=== PATIENT | female | born 1975 | race Caucasian/White ===

== ENCOUNTER 2017-05-02 12:52 | Emergency (ER) | payer OTHER ==
[~2017-05-02] VITALS: Ht 149.9 cm; Wt 81.2 kg
[2017-05-02 13:14] VITALS: BP 126/85
[2017-05-02 15:04] LABS: NEGATIVE OBC STREP NEG; POSITIVE OBC STREP POS
[2017-05-02] MEDS ORDERED: NYST100054 PO (15:27)
[2017-05-02] MEDS ORDERED: TRIA15OI TP (15:27)
[2017-05-02] MEDS ORDERED: PRED50TA PO (15:27)
--- NOTE | 2017-05-02 15:27 | PHYS DOC ---
Past Medical History Past Medical History: COPD, Other Additional Past Medical Histor: Pedro Luis's, emphysema, degen. disc disease Past Surgical History: Cholecystectomy, Hysterectomy, Tonsillectomy, Tubal ligation, Other Additional Past Surgical Histo: lithotripsy Alcohol Use: None Drug Use: None Adult General Chief Complaint Chief Complaint: MULTIPLE COMPLAINTS [facility] HPI Patient is a 42 year old female who presents complaining of multiple issues. Patient states she was treated for poison jovani rash or week ago with a give maintain. She states she's had a sore throat and is concerned she could have yeast infection in her mouth as well as vaginal area. Patient denies any fever. Review of Systems Review of Systems Constitutional: Denies fever or chills [] Eyes: Denies change in visual acuity, redness, or eye pain [] HENT: sore throat [] Respiratory: Denies cough or shortness of breath [] Cardiovascular: No additional information not addressed in HPI [] GI: Denies abdominal pain, nausea, vomiting, bloody stools or diarrhea [] : Denies dysuria or hematuria [] Musculoskeletal: Denies back pain or joint pain [] Integument: Denies rash or skin lesions [] Neurologic: Denies headache, focal weakness or sensory changes [] Endocrine: Denies polyuria or polydipsia [] Allergies Allergies Allergies Coded Allergies Type Severity Reaction Last Updated Verified No Known Drug Allergies 05/02/17 No Physical Exam Physical Exam Constitutional: Well developed, well nourished, no acute distress, non-toxic appearance. [] HENT: Normocephalic, atraumatic, bilateral external ears normal, oropharynx moist, no oral exudates, nose normal. [] Eyes: PERRLA, EOMI, conjunctiva normal, no discharge. [] Neck: Normal range of motion, no tenderness, supple, no stridor. [] Cardiovascular:Heart rate regular rhythm, no murmur [] Lungs & Thorax: Bilateral breath sounds clear to auscultation [] Abdomen: Bowel sounds normal, soft, no tenderness, no masses, no pulsatile masses. [] Skin: trace amount of rash on the left F/wrist wasA Back: No tenderness, no CVA tenderness. [] Extremities: No tenderness, no cyanosis, no clubbing, ROM intact, no edema. [] Neurologic: Alert and oriented X 3, normal motor function, normal sensory function, no focal deficits noted. [] Psychologic: Affect normal, judgement normal, mood normal. [] Current Patient Data Vital Signs Vital Signs Date Time Temp Pulse Resp B/P (MAP) Pulse Ox O2 Delivery O2 Flow Rate FiO2 05/02/17 13:14 98.3 91 16 99 Room Air 98.3 Lab Values Laboratory Tests Test 05/02/17 14:20 Group A Streptococcus Rapid Negative (NEGATIVE) EKG EKG [] Radiology/Procedures Radiology/Procedures [] Course & Med Decision Making Course & Med Decision Making Pertinent Labs and Imaging studies reviewed. (See chart for details) Patient is in the ED with complaints of yeast infection after being treated with amoxicillin. She is also complaining of sore throat. Strep test is negative. She is also complaining of poison jovani rash. Will be discharged with prednisone and triamcinolone cream. Discharge with Benadryl as well. Follow-up with PCP. Clay Disclaimer Clay Disclaimer This electronic medical record was generated, in whole or in part, using a voice recognition dictation system. Departure Departure Impression: Primary Impression: Pharyngitis, acute Additional Impression: Poison jovani Disposition: HOME, SELF-CARE Condition: STABLE (ERASED) Referrals: NO PCP (PCP) Patient Instructions: Contact Dermatitis, [id number], Viral and Bacterial Pharyngitis Additional Instructions: Please use the medications provided as ordered. Follow-up with your doctor in 1 -2 weeks. Scripts Nystatin (NYSTATIN) 100,000 Unit/1 Ml Oral.susp 5 ML PO QID, #200 ML Prov: SOFIE DOCKERY APRN 05/02/17 Triamcinolone Acetonide (TRIAMCINOLONE ACETONIDE 0.1% OINT) 15 Gm Oint...g. [address] TP BID for WOUND CARE, #1 TUBE Prov: SOFIE DOCKERY APRN 05/02/17 Prednisone (PREDNISONE) 50 Mg Tablet 1 TAB PO DAILY, #5 TAB Prov: SOFIE DOCKERY APRN 05/02/17 Problem Qualifiers Primary Impression: Pharyngitis, acute Pharyngitis/tonsillitis etiology: unspecified etiology Qualified Codes: J02.9 - Acute pharyngitis, unspecified SOFIE DOCKERY APRN May 02, 2017 15:27
== END 2017-05-02 15:35 | disposition home or self-care (01) ==
LOC: ER 12:52
DX: L23.7 Allergic contact dermatitis due to plants, except food (principal); J02.9 Acute pharyngitis, unspecified; J44.9 Chronic obstructive pulmonary disease, unspecified; J43.9 Emphysema, unspecified
CPT/HCPCS: 87070; 87880; 99283